=== PATIENT | female | born 1930 | race African-American/Black ===

== ENCOUNTER 2016-09-08 09:29 | Observation (INO) ==
[2016-09-08] MEDS ORDERED: hydrALAZINE 20 MG/1 ML VIAL IV PRN (09:32)
[2016-09-08] MEDS ORDERED: GLUCAGON 1 MG VIAL IM PRN ×2 (09:39→13:49)
[2016-09-08] MEDS ORDERED: DEXTROSE 50% 25 GM/50 ML VIAL IV PRN ×2 (09:39→13:49)
[2016-09-08 11:51] LABS: Basophils # 0.1 10*3/uL (0.0-0.2); Basophils % 0.9 % (0.0-0.8); Eosinophils % 0.7 % (0.00-10.9); Hematocrit 34.4 VOL% (35.7-47.0); Hemoglobin 10.6 GM/DL (12.0-16.0); Immature Granulocytes % 0.2 %; Immature Granulocytes Absolute 0.01 #; Lymphocytes # 1.9 10*3/uL (1.4-4.0); Lymphocytes % 32.2 % (21.3-54.2); Mean Corpuscular HGB Conc 30.8 GM/DL (32-36); Mean Corpuscular Hemoglobin 26 PG (27-34); Mean Corpuscular Volume 84.5 FL (87-102); Mean Platelet Volume 10.4 FL (9.6-12.0); Monocytes # 0.3 10*3/uL (0.11-0.8); Monocytes % 5.1 % (1.7-12.7); Neutrophils # 3.6 10*3/uL (1.4-7.4); Neutrophils % 60.9 % (38.7-73.9); Platelet Count 186 T/CUMM (130-400); Red Blood Count 4.07 MC/CUMM (3.8-5.5); Red Cell Distribution Width 13.4 % (9.3-17.3); White Blood Count 5.9 T/CUMM (4-12)
[2016-09-08 12:24] LABS: Calcium 8.9 MG/DL (8.5-10.1); Magnesium 1.3 MG/DL (1.8-2.4); Osmolality,Calculated 293.7 MOS/KG (273-304); Potassium 3.7 MMOL/L (3.5-5.1); Thyroid Stimulating Hormone 0.238 uIU/ml (0.358-3.74)
--- NOTE | 2016-09-08 12:36 | EKG Report ---
Stationary ECG Study [facility] Test Date: 09/08/2016 12:36:06 PM Pat Name: GRICELDA SANDS Department: Room: 267 Gender: F [employer] Services: DEMARCO : 1930 Requested by: Uma Rolon Order Number: [id number] Reading MD: FAN CASE Intervals [place] Rate: 62 P: 66 HI: 215 QRS: 29 QRSD: 152 T: 37 QT: 441 QTc: 447 Interpretive Statements SINUS RHYTHM WITH PROLONGED HI INTERVAL RIGHT BUNDLE BRANCH BLOCK Electronically Signed On 09-11-16 11:00:31 CDT by FAN CASE [email or web address]
[2016-09-08] MEDS: INSULIN REGULAR 100 UNIT/ML SUBCUT SCH ×3 (12:56→21:01)
[2016-09-08] MEDS ORDERED: ENOXAPARIN 40 MG/0.4 ML SYRINGE SUBCUT SCH (13:30)
--- NOTE | 2016-09-08 13:39 | XRay Report ---
Exam: XR chest 2V Indication: Angina Comparison study: 06/11/2016 Findings: The heart, mediastinum and bony structures are stable from prior. Mild hyperexpansion of the lungs and central interstitial prominence is noted and may represent chronic scarring/COPD changes. There is no focal consolidation, pneumothorax or pleural effusion identified. Cholecystectomy clips are noted. Impression: No acute cardiopulmonary process. Chronic interstitial changes. Otherwise, no significant change. PROCEDURE INTERPRETED AT [facility] DEPARTMENT OF RADIOLOGY Final Report Signed by: Arnel Wayne
[2016-09-08] MEDS ORDERED: MAGNESIUM SULF RIDER 2 GM in PREMIX 1 EACH IV PRN ×2 (13:45→15:02)
[2016-09-08] MEDS ORDERED: MAGNESIUM SULF RIDER 4 GM in PREMIX 1 EACH IV PRN (13:45)
[2016-09-08] MEDS: SODIUM CHLORIDE 0.45% 1,000 ML IV SCH (13:52)
[2016-09-08] MEDS: MONTELUKAST 10 MG TABLET PO SCH (13:57)
[2016-09-08] MEDS ORDERED: OMEPRAZOLE 20 MG CAPSULE PO SCH (14:00)
[2016-09-08] MEDS ORDERED: METOPROLOL TARTRATE 50 MG TABLET PO SCH ×2 (14:00→21:00)
[2016-09-08] MEDS ORDERED: CYANOCOBALAMIN 1000 MCG/1 ML VIAL IM SCH (14:00)
[2016-09-08] MEDS ORDERED: ISOSORBIDE MONONITRATE 60 MG TABLET PO SCH (14:00)
[2016-09-08 14:17] LABS: Apearance,Urine Slightly Hazy (Clear); Bacteria,Urine Moderate /HPF (Few); Bilirubin,Urine Negative (Negative); Blood, Urine Negative (Negative); Glucose,Urine (UA) 50 mg/dL (Negative); Ketones,Urine Negative (Negative); Nitrite,Urine Negative (Negative); Protein,Urine Negative; RBC,Urine <1 /HPF (0-4); Squamous Epithelial Cell,Urine Occasional /HPF (0-10); Urine Color Straw (Yellow); Urine Specific Gravity 1.008 (1.001-1.035); Urine Urobilinogen < 2.0 EU/DL (0.2-1.0); WBC,Urine 1 /HPF (0-6)
--- NOTE | 2016-09-08 14:38 | Event Note ---
<Yamel Parra E - Last Filed: 09/08/16 14:37> See H&P scanned in from Dr. Dejesus's clinci visit today. Will discuss with Dr. Dwyer the plan of care. <Gil Dwyer - Last Filed: 09/08/16 15:32> Patient seen and examined and case discussed with Yamel Parra. The patient has symptoms consistent with crescendo exertional angina. I think she needs cardiac catheterization. I discussed this with her today and will plan to get this performed tomorrow.
[2016-09-08] MEDS ORDERED: amLODIPine 5 MG TABLET PO SCH (15:00)
[2016-09-08] MEDS ORDERED: POTASSIUM CHLORIDE RIDER 10 MEQ in PREMIX 1 EACH IV PRN (15:02)
[2016-09-08] MEDS ORDERED: ENOXAPARIN 60 MG/0.6 ML SYRINGE SUBCUT ONE (15:30)
--- NOTE | 2016-09-08 15:59 | Ultrasound Report ---
Exam: Carotid ultrasound Date: 09/08/2016 Comparison: 07/04/2011 Technique: Duplex scans of the carotid and vertebral arteries using B-mode/Chavez scale imaging and Doppler spectral analysis and color flow. Reason: Right carotid bruit Findings: The right ICA measures 6.0 mm in diameter and the left ICA measures 4.2 mm in diameter. Color-flow documented in the visualized arteries. The peak systolic velocities are as follows: Right CCA: 96.4 cm/s Right ICA: 147.0 cm/s Right ECA: 110.3 cm/s Left CCA: 84.0 cm/s Left ICA: 115.3 cm/s Left ECA: 115.3 cm/s The peak systolic ICA/CCA velocity ratios are as follows: 1.5 on the right and 1.4 on the left. Antegrade flow is present in both vertebral arteries. Impression:[The velocity measurements in the right ICA falls within the 50-69% stenosis range with less than 50% stenosis in the left ICA. However the right ICA/CCA ratio is normal which indicates this stenosis may be less critical. Calcific plaque formation with antegrade flow in both vertebral arteries.] The Society of Radiologists in Ultrasound consensus conference criteria was used. The Ultrasound images were captured and stored. PROCEDURE INTERPRETED AT [facility] DEPARTMENT OF RADIOLOGY Final Report Signed by: Dr. Hiwot Vela
[2016-09-08 16:15] LABS: PT Patient Result 10.6 SECS
[2016-09-08] MEDS ORDERED: ROSUVASTATIN 10 MG TABLET PO SCH ×2 (17:00→21:00)
[2016-09-08] MEDS: sitaGLIPtin 100 MG TABLET PO SCH (21:00)
[2016-09-08] MEDS: ALUMINUM/MAGNES/SIMETH MAX STR 30 ML UDCUP PO PRN (21:00)
[2016-09-08] MEDS ORDERED: glyBURIDE MICRONIZED 6 MG TABLET PO SCH (21:00)
[2016-09-08] MEDS ORDERED: amLODIPine 2.5 MG TABLET PO SCH (21:00)
[2016-09-08] MEDS: DOCUSATE SODIUM 100 MG CAPSULE PO SCH (21:01)
[2016-09-08] MEDS: CARVEDILOL 25 MG TABLET PO SCH (21:01)
[2016-09-08] MEDS: MAGNESIUM CHLORIDE 64 MG TABLET PO SCH (21:03)
[2016-09-09 05:25] LABS: Risk Ratio 2.14
[2016-09-09] MEDS: LEVOTHYROXINE 75 MCG TABLET PO SCH (06:39)
[2016-09-09] MEDS: SODIUM CHLORIDE 0.45% 1,000 ML IV SCH ×2 (06:40→15:55)
[2016-09-09] MEDS ORDERED: diphenhydrAMINE CAP 25 MG CAPSULE PO ONE (07:00)
[2016-09-09] MEDS ORDERED: DIAZEPAM 5 MG TABLET PO ONE (07:00)
[2016-09-09] MEDS ORDERED: LEVOTHYROXINE 75 MCG TABLET PO SCH (07:00)
[2016-09-09] MEDS ORDERED: amLODIPine 5 MG TABLET PO SCH (09:00)
[2016-09-09] MEDS ORDERED: MAGNESIUM CHLORIDE 64 MG TABLET PO SCH (09:00)
[2016-09-09] MEDS ORDERED: ASPIRIN EC 81 MG TABLET PO SCH (09:00)
[2016-09-09] MEDS ORDERED: ENOXAPARIN 100 MG/ML SYRINGE SUBCUT SCH (09:00)
[2016-09-09] MEDS ORDERED: sitaGLIPtin 100 MG TABLET PO SCH (09:00)
--- NOTE | 2016-09-09 09:47 | Cardiology Progress Note ---
Assessment and Plan (1) Unstable angina Status: Acute Assessment and plan: 1. 86-year-old BF with diabetes, hypertension, one-year history of gradually increasing exertional chest discomfort and dyspnea on exertion which became much worse in the last 2 weeks' time suggestive of unstable angina. 2. She was admitted by Dr. Henderson from clinic yesterday due to her unstable symptoms. 3. Plan left heart catheterization today from right femoral access, given her high probability of significant CAD I discussed with the patient arrest and benefits of heart catheterization including but not limited to: , stroke, heart attack, vascular damage, reaction to medicine or dye, bleeding requiring blood transfusion, failure the procedure, possible need for planned her emergency heart surgery. I have answered all the patient's questions and the patient is agreeable to proceed. Current Visit: Yes (2) HTN (hypertension) Status: Chronic Current Visit: No Cardiology - PN: Subj Interval history: Mrs. Bradley is doing better today. She is very concerned as she's had exertional chest chest discomfort in her upper chest for over a year but has gotten very severe in the last 2 weeks. His assessment distant exertion. She is asymptomatic this morning. We discussed risks and benefits of catheterization I answered all her questions. Exam (Progress Note) - Constitutional Vitals: Period Temp Pulse Resp BP Sys/Mathew Pulse Ox Last 24 Hr 97.2 F-98.6 F 63-89 18-20 132-191/63-81 95-100 General appearance: no acute distress, over weight - Head Head exam: Present: normal inspection, normocephalic, atraumatic - Neck Neck exam: Present: normal inspection - Respiratory Respiratory exam: Present: clear to auscultation bilaterally. Absent: rhonchi, stridor, wheezes - Cardiovascular Cardiovascular exam: Present: regular rate and rhythm. Absent: diastolic murmur , rubs - GI/Abdominal GI/Abdominal exam: Present: soft. Absent: tenderness - Extremities Exam Extremities exam: Present: other (strong right femoral pulse, and right radial pulse.). Absent: edema Result/EKG - Labs CBC & BMP: 09/08/16 11:17 09/08/16 11:17 Labs: Laboratory Results - last 24 hr 09/08/16 09/08/16 09/08/16 11:17 11:17 11:17 WBC 5.9 RBC 4.07 Hgb 10.6 L Hct 34.4 L MCV 84.5 L MCH 26 L MCHC 30.8 L RDW 13.4 Plt Count 186 MPV 10.4 Neut % (Auto) 60.9 Lymph % (Auto) 32.2 [place] % (Auto) 5.1 Eos % (Auto) 0.7 Baso % (Auto) 0.9 H Neut # (Auto) 3.6 Lymph # (Auto) 1.9 [place] # (Auto) 0.3 Eos # (Auto) 0.0 Baso # (Auto) 0.1 Immature Gran % 0.2 Nucleated RBC % 0.0 Immature Gran # 0.01 Nucleated RBCs # 0.00 INR PT Patient/Control Mix Sodium 145 Potassium 3.7 Chloride 108 H Carbon Dioxide 27 Anion Gap 13.7 BUN 14 Creatinine 0.90 GFR Calculation 77 BUN/Creatinine Ratio 15.00 Glucose 180 H POC Glucose Calculated Osmolality 293.7 Calcium 8.9 Magnesium 1.3 L Troponin I < 0.015 Triglycerides Cholesterol LDL Cholesterol VLDL Cholesterol HDL Cholesterol Heart Disease Risk Ratio TSH 3rd Generation 0.238 L Urine Color Urine Appearance Urine pH Ur Specific [place] Urine Protein Urine Glucose (UA) Urine Ketones Urine Blood Urine Nitrate Urine Bilirubin Urine Urobilinogen Urine Leukocytes Urine RBC Urine WBC Ur Squamous Epith Cells Urine Bacteria Ur Culture Indicated? 09/08/16 09/08/16 09/08/16 12:49 13:55 15:58 WBC RBC Hgb Hct MCV MCH MCHC RDW Plt Count MPV Neut % (Auto) Lymph % (Auto) [place] % (Auto) Eos % (Auto) Baso % (Auto) Neut # (Auto) Lymph # (Auto) [place] # (Auto) Eos # (Auto) Baso # (Auto) Immature Gran % Nucleated RBC % Immature Gran # Nucleated RBCs # INR PT Patient/Control Mix Sodium Potassium Chloride Carbon Dioxide Anion Gap BUN Creatinine GFR Calculation BUN/Creatinine Ratio Glucose POC Glucose 191 H Calculated Osmolality Calcium Magnesium Troponin I < 0.015 Triglycerides Cholesterol LDL Cholesterol VLDL Cholesterol HDL Cholesterol Heart Disease Risk Ratio TSH 3rd Generation Urine Color Straw Urine Appearance Slightly hazy Urine pH 6.0 Ur Specific [place] 1.008 Urine Protein Negative Urine Glucose (UA) 50 Urine Ketones Negative Urine Blood Negative Urine Nitrate Negative Urine Bilirubin Negative Urine Urobilinogen < 2.0 H Urine Leukocytes Negative Urine RBC <1 Urine WBC 1 Ur Squamous Epith Cells Occasional Urine Bacteria Moderate Ur Culture Indicated? Not indicated 09/08/16 09/08/16 09/08/16 15:58 15:59 20:59 WBC RBC Hgb Hct MCV MCH MCHC RDW Plt Count MPV Neut % (Auto) Lymph % (Auto) [place] % (Auto) Eos % (Auto) Baso % (Auto) Neut # (Auto) Lymph # (Auto) [place] # (Auto) Eos # (Auto) Baso # (Auto) Immature Gran % Nucleated RBC % Immature Gran # Nucleated RBCs # INR 1.0 PT Patient/Control Mix 10.6 Sodium Potassium Chloride Carbon Dioxide Anion Gap BUN Creatinine GFR Calculation BUN/Creatinine Ratio Glucose POC Glucose 116 H 253 H Calculated Osmolality Calcium Magnesium Troponin I Triglycerides Cholesterol LDL Cholesterol VLDL Cholesterol HDL Cholesterol Heart Disease Risk Ratio TSH 3rd Generation Urine Color Urine Appearance Urine pH Ur Specific [place] Urine Protein Urine Glucose (UA) Urine Ketones Urine Blood Urine Nitrate Urine Bilirubin Urine Urobilinogen Urine Leukocytes Urine RBC Urine WBC Ur Squamous Epith Cells Urine Bacteria Ur Culture Indicated? 09/09/16 09/09/16 09/09/16 04:05 04:05 07:36 WBC RBC Hgb Hct MCV MCH MCHC RDW Plt Count MPV Neut % (Auto) Lymph % (Auto) [place] % (Auto) Eos % (Auto) Baso % (Auto) Neut # (Auto) Lymph # (Auto) [place] # (Auto) Eos # (Auto) Baso # (Auto) Immature Gran % Nucleated RBC % Immature Gran # Nucleated RBCs # INR PT Patient/Control Mix Sodium Potassium Chloride Carbon Dioxide Anion Gap BUN Creatinine GFR Calculation BUN/Creatinine Ratio Glucose POC Glucose 180 H Calculated Osmolality Calcium Magnesium 2.4 Troponin I Triglycerides 85 Cholesterol 165 LDL Cholesterol 79.0 VLDL Cholesterol 17.0 HDL Cholesterol 77 H Heart Disease Risk Ratio 2.14 TSH 3rd Generation Urine Color Urine Appearance Urine pH Ur Specific [place] Urine Protein Urine Glucose (UA) Urine Ketones Urine Blood Urine Nitrate Urine Bilirubin Urine Urobilinogen Urine Leukocytes Urine RBC Urine WBC Ur Squamous Epith Cells Urine Bacteria Ur Culture Indicated?
[2016-09-09] MEDS: INSULIN REGULAR 100 UNIT/ML SUBCUT SCH ×4 (10:03→21:23)
[2016-09-09] MEDS ORDERED: DIAZEPAM 5 MG TABLET ONE (13:59)
[2016-09-09] MEDS ORDERED: diphenhydrAMINE CAP 50 MG CAPSULE ONE (13:59)
[2016-09-09] MEDS: DOCUSATE SODIUM 100 MG CAPSULE PO SCH ×2 (14:00→21:24)
[2016-09-09] MEDS: ISOSORBIDE MONONITRATE 60 MG TABLET PO SCH (14:04)
[2016-09-09] MEDS: CARVEDILOL 25 MG TABLET PO SCH ×2 (14:04→21:26)
[2016-09-09] MEDS: ASPIRIN EC 81 MG TABLET PO SCH (14:05)
[2016-09-09] MEDS: PANTOPRAZOLE 40 MG TABLET PO SCH (14:05)
[2016-09-09] MEDS ORDERED: HYDROmorphone 2 MG/1 ML VIAL ONE (14:54)
[2016-09-09] MEDS ORDERED: LIDOCAINE 1% 20 ML VIAL ONE (14:54)
[2016-09-09] MEDS ORDERED: MIDAZOLAM 2 MG/2 ML VIAL ONE (14:55)
[2016-09-09] MEDS: MAGNESIUM CHLORIDE 64 MG TABLET PO SCH ×2 (15:05→21:26)
[2016-09-09] MEDS ORDERED: CLOPIDOGREL 300 MG TABLET PO ONE (15:28)
[2016-09-09] MEDS ORDERED: HYDROmorphone 2 MG/1 ML VIAL IV PRN (15:30)
--- NOTE | 2016-09-09 15:38 | Cardiac Catheterization ---
Date of Procedure:: 09/09/16 Post-op diagnosis: same Procedure: Procedures performed: 1. Left heart catheterization 2. Coronary angiography 3. Left ventricular angiography 4. Right femoral arteriotomy closure with Angio-Seal device Brief clinical summary: Mrs. Bradley an 86-year-old BF patient Dr. Henderson's, with progressive exertional chest pain suggestive of accelerated/unstable angina Description of procedure: After obtaining informed consent, the right groin was prepped and draped in the usual sterile fashion. Next a short 6 Bulgarian sheath was placed in the right femoral artery using a modified Seldinger technique, after the patient received IV sedation and local anesthetic. Next a JL4 catheter was advanced over a guidewire under fluoroscopic guidance, and was engaged to the left coronary artery after which angiography was performed in multiple views. This was then removed over a wire, and a JR4 catheter was advanced in similar fashion was engaged the right coronary artery after which angiography was performed in multiple views. Next a bent pigtail catheter was advanced into the left ventricle, where hemodynamic measurements were obtained, left ventriculography was performed. I was able to visualize the sheath on a "steele down" shot which showed the sheath was inserted in the right common femoral artery in a vessel suitable for closure. Hemostasis was obtained with Angio-Seal device with no residual bleeding. She was transferred from the labor relations manager in good condition without complication. Coronary angiography: Left main coronary artery is normal developed with no significant disease. The left anterior descending has moderate to heavy proximal calcification with 60% stenosis. There are couple of tiny diagonal branches LAD wraps around the apex. The circumflex has a moderate to heavily calcified 99% ostial stenosis involving a long thin diseased ramus which has 99 % proximal disease/bifurcation lesion. There are 2 average sized obtuse marginal branches the first has greater than 90% proximal disease in the second has 99% mid disease. They OM 2 is quite tortuous. The right coronary artery is smaller than average caliber is dominant. There is moderate to heavy calcification throughout its course with 95% proximal stenosis and high mid subtotal occlusion. The distal fell vessel fills by right to right as well as [id number] collaterals. Left ventriculography: Left ventricles appears normal size with normal LV systolic function with Ejection fraction 60% without segmental wall motion abnormality. There is no significant mitral regurgitation. Impression: 1. Normal LV systolic function with ejection fraction estimated to be 60% without segmental wall motion around 2. Mildly elevated left-sided filling pressures LVEDP equal to 11 mmHg 3. Right dominant system 4. Diffuse moderate to heavy calcification of all 3 coronary systems with coronary artery disease as described above including but not limited to: 8. Heavily calcified 60% proximal LAD stenosis B. Moderate to heavily calcified 99% ostial circumflex disease with greater than 95% proximal OM1, and mid OM 2 disease C. Diffusely calcified RCA with 95% proximal RCA with subtotal high mid RCA occlusion with filling of distal vessel by right carotid [id number] collaterals Recommendation discussion: It is encouraging that Mrs. Bradley has normal LV function. Her anatomy is not amenable to percutaneous intervention. I discussed the case with Dr. Henderson her primary sprayer leather who agrees to medical therapy is the best option. I'll start her on her next and increase Crestor to 20 minutes per day. We'll continue baby aspirin and Plavix. Anesthesia: minimal conscious sedation Surgeon / Physician: Niranjan Lenz Strategic Account Director: other Estimated blood loss: minimal Specimens: none sent Condition: stable Disposition: floor - Medications / Follow-up
--- NOTE | 2016-09-09 15:51 | ECHO Report ---
Antionette Bradley Exam Date: 09/09/2016 09:01 Referring Physician: Technologist: Kelsie Torrez ZHANNA Age: 86 Ht (in): Wt (lb): Gender: F Exam Location: [facility] Echo Indications: Chest pain, unspecified, Essential (primary) hypertension, DMII, Dyslippidemia BP: / HR: Rhythm: Sinus Technical Quality: IMPRESSIONS Normal chamber sizes Normal LV systolic function with ejection fraction estimated to be 60% without segmental wall motion normality Aortic sclerosis without stenosis Mitral valve thickening with normal leaflet motion, and trace to 1+ mitral regurgitation 1+ tricuspid regurgitation with RVSP 33 mmHg plus RAP MEASUREMENTS (Male / Female) Normal Values 2D ECHO LV Diastolic Diameter PLAX 3.7 cm 4.2 - 5.9 / 3.9 - 5.3 cm LV Systolic Diameter PLAX 2.4 cm LV Fractional Shortening PLAX 34.4 % IVS Diastolic Thickness 1.1 cm 0.6 - 1.0 / 0.6 - 0.9 cm LVPW Diastolic Thickness 1.2 cm 0.6 - 1.0 / 0.6 - 0.9 cm RV Internal Dim ED PLAX 3.3 cm Aortic Root Diameter 2.9 cm LA Systolic Diameter LX 3.8 cm 3.0 - 4.0 / 2.7 - 3.8 cm DOPPLER TR Peak Velocity 289.0 cm/s TR Peak Gradient 33.4 mmHg FINDINGS Left Ventricle Normal left ventricular cavity size. Mild left ventricular hypertrophy. Left ventricular ejection fraction is estimated at 60 %. Right Ventricle The right ventricle is normal in size and function. Right Atrium Mild atrial enlargement in apical view (elongated RA). Left Atrium Mild atrial enlargement in apical view (elongated LA). Mitral Valve Thickened mitral valve. Trace to mild mitral valve regurgitation. Aortic Valve Aortic valve sclerosis without stenosis or regurgitation. Tricuspid Valve Morphologically normal tricuspid valve. Trace to mild tricuspid valve regurgitation. Tricuspid regurgitation velocities suggest a PAP of 43 mmHg. Pulmonic Valve Morphologically normal pulmonic valve. Trace pulmonary valve regurgitation. Pericardium Normal pericardium without effusion. Aorta Normal ascending aorta dimension. Niranjan Lenz (Electronically Signed) Final Date: 09 September 2016 15:50
[2016-09-09] MEDS: MONTELUKAST 10 MG TABLET PO SCH (17:44)
[2016-09-09] MEDS ORDERED: ROSUVASTATIN 20 MG TABLET PO SCH (21:00)
[2016-09-09] MEDS: RANOLAZINE 500 MG TABLET PO SCH (21:24)
[2016-09-09] MEDS: sitaGLIPtin 100 MG TABLET PO SCH (21:26)
[2016-09-10] MEDS: ALUMINUM/MAGNES/SIMETH MAX STR 30 ML UDCUP PO PRN (02:08)
[2016-09-10] MEDS: SODIUM CHLORIDE 0.45% 1,000 ML IV SCH (04:03)
[2016-09-10] MEDS: LEVOTHYROXINE 75 MCG TABLET PO SCH (06:02)
[2016-09-10 06:56] LABS: Calcium 8.2 MG/DL (8.5-10.1); Osmolality,Calculated 288.7 MOS/KG (273-304); Potassium 4.2 MMOL/L (3.5-5.1)
[2016-09-10] MEDS: RANOLAZINE 500 MG TABLET PO SCH (08:38)
[2016-09-10] MEDS: ASPIRIN EC 81 MG TABLET PO SCH (08:38)
[2016-09-10] MEDS: PANTOPRAZOLE 40 MG TABLET PO SCH (08:38)
[2016-09-10] MEDS: MAGNESIUM CHLORIDE 64 MG TABLET PO SCH (08:38)
[2016-09-10] MEDS: ISOSORBIDE MONONITRATE 60 MG TABLET PO SCH (08:38)
[2016-09-10] MEDS: DOCUSATE SODIUM 100 MG CAPSULE PO SCH (08:39)
[2016-09-10] MEDS: INSULIN REGULAR 100 UNIT/ML SUBCUT SCH (08:39)
[2016-09-10] MEDS: MONTELUKAST 10 MG TABLET PO SCH (08:39)
[2016-09-10] MEDS: CARVEDILOL 25 MG TABLET PO SCH (08:39)
[2016-09-10] MEDS ORDERED: CLOPIDOGREL 75 MG TABLET PO SCH (09:00)
[2016-09-10 09:28] LABS: Basophils % 0.6 % (0.0-0.8); Eosinophils # 0.1 10*3/uL (0.0-0.87); Eosinophils % 1.3 % (0.00-10.9); Immature Granulocytes % 0.3 %; Immature Granulocytes Absolute 0.02 #; Lymphocytes # 1.7 10*3/uL (1.4-4.0); Lymphocytes % 26.2 % (21.3-54.2); Mean Corpuscular HGB Conc 31.3 GM/DL (32-36); Mean Corpuscular Hemoglobin 26 PG (27-34); Mean Corpuscular Volume 83.6 FL (87-102); Mean Platelet Volume 10.6 FL (9.6-12.0); Monocytes # 0.5 10*3/uL (0.11-0.8); Monocytes % 7.1 % (1.7-12.7); Neutrophils # 4.1 10*3/uL (1.4-7.4); Neutrophils % 64.5 % (38.7-73.9); Platelet Count 168 T/CUMM (130-400); Red Blood Count 3.83 MC/CUMM (3.8-5.5); Red Cell Distribution Width 13.7 % (9.3-17.3); White Blood Count 6.3 T/CUMM (4-12)
[2016-09-10 11:56] VITALS: BP 114/50
--- NOTE | 2016-09-10 12:06 | Discharge Summary ---
Hospital Course - Hospital Course Hospital Course: Patient was admitted from Dr. Dejesus's office for chest pain, shortness of breath. She underwent elective cardiac catheterization performed by Dr. Lenz which revealed the following: Impression: 1. Normal LV systolic function with ejection fraction estimated to be 60% without segmental wall motion around 2. Mildly elevated left-sided filling pressures LVEDP equal to 11 mmHg 3. Right dominant system 4. Diffuse moderate to heavy calcification of all 3 coronary systems with coronary artery disease as described above including but not limited to: 8. Heavily calcified 60% proximal LAD stenosis B. Moderate to heavily calcified 99% ostial circumflex disease with greater than 95% proximal OM1, and mid OM 2 disease C. Diffusely calcified RCA with 95% proximal RCA with subtotal high mid RCA occlusion with filling of distal vessel by right carotid [id number] collaterals Recommendation discussion: It is encouraging that Mrs. Bradley has normal LV function. Her anatomy is not amenable to percutaneous intervention. The case was discussed with Dr. Dejesus, her primary marble polisher hand. Medical management deemed the most appropriate action. Continue to treat with low dose ASA, Plavix and increased dose of Crestor. She tolerated the procedure well without complication was returned to our telemetry unit in stable condition. Overnight, her labs are stable. She denies chest pain, heaviness or tightness. Right groin is soft and free of hematoma or bruit. She has been ambulating without problems. Having felt him at maximal medical therapy, she is being discharged home in stable condition. She will be given a one-week follow-up appoint with Dr. Dejesus, labs: BMP, magnesium and CBC. Not being discharged on an ANNETTE-Inhibitor as her blood pressure came under better control with Procardia. Can attempt outpatient introduction if indicated. - Time spent with patient Time with patient DS: Greater than 30 minutes Diagnosis - Discharge Diagnosis (1) Dyslipidemia Status: Chronic (2) Unstable angina Status: Resolved (3) Diabetes Status: Chronic (4) HTN (hypertension) Status: Chronic (5) CAD (coronary artery disease) Status: Chronic Specialty Discharge - Follow Up or Referrals Follow up with: Bridgette Dejesus DO [Physician] - 1 Week (BMP, magnesium, CBC) Discharge Plan - Discharge Data Disposition: Disch To Home/Self Care Condition at Discharge: Stable Discharge Diet: heart healthy Activity: other (Post cath expectations) Hygiene: other (Post cath expectations) Weight Bearing at Discharge: other (Post cath expectations) Driving: other (Post cath expectations) Contact your physician if you experience:: fever over 101, Difficulty voiding, Redness or swelling, Nausea/Vomiting, Shortness of breath, Bleeding, pain uncontrolled by pain medications - Discharge Medications New Clopidogrel [Plavix] 75 mg PO DAILY #30 tablet Ranolazine [Ranexa] 500 mg PO BID #60 tablet Rosuvastatin [Crestor] 20 mg PO BEDTIME #30 tablet Aspirin EC Tab 81 mg PO DAILY #0 tablet NIFEdipine XL TAB [Procardia Xl] 30 mg PO BEDTIME #30 tablet Continue metFORMIN [Glucophage] 500 mg PO TID W/MEALS sitaGLIPtin [Januvia] 100 mg PO DAILY Montelukast Tab [Singulair Tab] 10 mg PO DAILY Isosorbide Mononitrate [Imdur] 60 mg PO DAILY Levothyroxine Tab [Synthroid Tab] 75 mcg PO 0700 Aspirin [Ecotrin] 81 mg PO DAILY Omeprazole 20 mg PO DAILY Glyburide,Micronized [Glyburide Micronized] 6 mg PO BID Metoprolol Tartrate 50 mg PO BID Cyanocobalamin Inj [Vitamin B12 Inj] 1,000 mcg IM Q30D Magnesium Chloride [Slow Mag] 64 mg PO DAILY Discontinued amLODIPine [Norvasc] 2.5 mg PO BEDTIME Rosuvastatin Calcium [Crestor] 5 mg PO DAILY - Follow Up or Referral - Forms/Instructions Additional Discharge Instructions: Please write, in detail, list of medications and times to take for patient. Please instruct NOT to resume Metformin until Satuday morning. Thanks Exam - Constitutional Vitals: Period Temp Pulse Resp BP Sys/Mathew Pulse Ox Last 24 Hr 97.6 F-98.0 F 53-77 16-20 89-154/41-68 94-100 Exam: General: [Appears well with no apparent distress.] [Pleasant and cooperative. ] [Appears comfortable.] HEENT: [PERRL, normocephalic, atraumatic. Mucous membranes moist. No jaundice noted. Conjunctiva moist and clear, sclerae anicteric] Neck: No JVD/HJR, no thyromegaly or lymphadenopathy noted. No carotid bruit appreciated Cardiac: [Regular rate and rhythm.] [No murmur rub or gallop.] Lungs: [Clear to auscultation without accessory muscle use to assist the respiratory pattern.] Not requiring oxygen Abdomen: Soft, bowel sounds normoactive. Nontender and nondistended. No abdominal bruit or thrill noted. No masses noted. Musculoskeletal: No fluid collection. Decreased range of motion is noted. Extremities: Right groin is soft, free of hematoma or bruit. No clubbing, cyanosis noted. [ No edema noted.] Upper extremity pulses 2+. Lower extremity pulses 2+. Capillary refill less than 3 seconds. Skin: No unusual lesions or rashes. No skin breakdown appreciated. Neuro: Awake, alert and oriented 3. Moves all extremities well without hemiparesis or paralysis. No essential tremor is appreciated. Discharge Results Labs on day of discharge: Labs from last 24 hours 09/10/16 09/10/16 09/10/16 11:39 07:27 05:33 WBC RBC Hgb Hct MCV MCH MCHC RDW Plt Count MPV Neut % (Auto) Lymph % (Auto) [place] % (Auto) Eos % (Auto) Baso % (Auto) Neut # (Auto) Lymph # (Auto) [place] # (Auto) Eos # (Auto) Baso # (Auto) Immature Gran % Nucleated RBC % Immature Gran # Nucleated RBCs # Sodium 145 Potassium 4.2 Chloride 109 H Carbon Dioxide 24 Anion Gap 16.2 H BUN 9 Creatinine 0.70 GFR Calculation 103 BUN/Creatinine Ratio 12.00 Glucose 133 H POC Glucose 236 H 171 H Calculated Osmolality 288.7 Calcium 8.2 L 09/10/16 09/09/16 09/09/16 05:33 21:14 16:31 WBC 6.3 RBC 3.83 Hgb 10.0 L Hct 32.0 L MCV 83.6 L MCH 26 L MCHC 31.3 L RDW 13.7 Plt Count 168 MPV 10.6 Neut % (Auto) 64.5 Lymph % (Auto) 26.2 [place] % (Auto) 7.1 Eos % (Auto) 1.3 Baso % (Auto) 0.6 Neut # (Auto) 4.1 Lymph # (Auto) 1.7 [place] # (Auto) 0.5 Eos # (Auto) 0.1 Baso # (Auto) 0.0 Immature Gran % 0.3 Nucleated RBC % 0.0 Immature Gran # 0.02 Nucleated RBCs # 0.00 Sodium Potassium Chloride Carbon Dioxide Anion Gap BUN Creatinine GFR Calculation BUN/Creatinine Ratio Glucose POC Glucose 217 H 170 H Calculated Osmolality Calcium 09/09/16 11:49 WBC RBC Hgb Hct MCV MCH MCHC RDW Plt Count MPV Neut % (Auto) Lymph % (Auto) [place] % (Auto) Eos % (Auto) Baso % (Auto) Neut # (Auto) Lymph # (Auto) [place] # (Auto) Eos # (Auto) Baso # (Auto) Immature Gran % Nucleated RBC % Immature Gran # Nucleated RBCs # Sodium Potassium Chloride Carbon Dioxide Anion Gap BUN Creatinine GFR Calculation BUN/Creatinine Ratio Glucose POC Glucose 255 H Calculated Osmolality Calcium - Imaging and Cardiology Cardiology Procedure: report reviewed by me Procedure: Chest x-ray: report reviewed by me DS: Provider Date of admission: 09/08/16 10:44 Primary care physician: Igor Mendez MD Attending physician on admission: Bridgette Dejesus DO Discharging clinician: Yamel Parra NP Expected date of discharge: 09/10/16
== END 2016-09-10 14:48 | disposition home or self-care (01) ==
LOC: N.TELES
PROVIDERS: ADMIT Internal Medicine Cardiovascular Disease; ATTEND Internal Medicine Cardiovascular Disease
PROC: CLCCHCL (ICD-10-PCS; 2016-09-09 15:15)

== ENCOUNTER 2019-01-06 21:20 | Inpatient (IN) ==
[2019-01-06] MEDS ORDERED: SODIUM CHLORIDE 0.9% 1,000 ML IV STA (21:39)
[2019-01-06 22:13] LABS: Basophils # 0.1 10*3/uL (0.0-0.2); Basophils % 0.5 % (0.0-0.8); Hematocrit 33.2 VOL% (35.7-47.0); Hemoglobin 10.6 GM/DL (12.0-16.0); Immature Granulocytes % 0.5 %; Immature Granulocytes Absolute 0.05 #; Lymphocytes % 11.2 % (21.3-54.2); Mean Corpuscular HGB Conc 31.9 GM/DL (32-36); Mean Corpuscular Volume 85.6 FL (87-102); Mean Platelet Volume 9.9 FL (9.6-12.0); Monocytes % 7.4 % (1.7-12.7); Neutrophils % 80.4 % (38.7-73.9); Platelet Count 164 T/CUMM (130-400); Red Blood Count 3.88 MC/CUMM (3.8-5.5); White Blood Count 9.2 T/CUMM (4-12)
[2019-01-06 22:36] LABS: Apearance,Urine CLEAR (Clear); Bacteria,Urine Many /HPF (Few); Bilirubin,Urine Negative (Negative); Blood, Urine Negative (Negative); Glucose,Urine (UA) 150 mg/dL (Negative); Hyaline Casts,Urine 4 /LPF (0-3); Ketones,Urine 20 mg/dL (Negative); Mucus,Urine Occasional /LPF (Occasional); Nitrite,Urine Negative (Negative); Protein,Urine 30 MG/DL; RBC,Urine 4 /HPF (0-4); Squamous Epithelial Cell,Urine Occasional /HPF (0-10); Urine Color Amber (Yellow); Urine Specific Gravity 1.018 (1.001-1.035); Urine Urobilinogen < 2.0 EU/DL (0.2-1.0); WBC,Urine 3 /HPF (0-6)
[2019-01-06 22:38] LABS: Albumin 3.5 G/DL (3.4-5.0); Bilirubin,Total 0.6 MG/DL (0.2-1.0); Calcium 9.2 MG/DL (8.5-10.1); Osmolality,Calculated 274.2 MOS/KG (273-304); Total Protein 7.6 G/DL (6.4-8.3)
[2019-01-07] MEDS ORDERED: PROMETHAZINE 25 MG/1 ML VIAL IM PRN (02:14)
[2019-01-07] MEDS ORDERED: ONDANSETRON 4 MG/2 ML VIAL IV PRN (02:14)
[2019-01-07] MEDS ORDERED: NICOTINE 21 MG/24 HR PATCH TRANSDERM PRN (02:14)
[2019-01-07] MEDS ORDERED: diphenhydrAMINE CAP 25 MG CAPSULE PO PRN (02:14)
[2019-01-07] MEDS: SODIUM CHLORIDE 0.9% 1,000 ML IV SCH (02:43)
[2019-01-07 04:10] LABS: Free T4 (Free Thyroxine) 1.4 NG/DL (0.76-1.46); Thyroid Stimulating Hormone 0.293 uIU/ml (0.358-3.74)
[2019-01-07] MEDS: PANTOPRAZOLE 40 MG TABLET PO SCH (09:37)
[2019-01-07] MEDS ORDERED: DEXTROSE 50% 25 GM/50 ML VIAL IV PRN ×2 (12:02→17:20)
[2019-01-07] MEDS ORDERED: GLUCAGON 1 MG VIAL IM PRN (12:02)
[2019-01-07] MEDS ORDERED: INSULIN LISPRO 100 UNIT/ML SUBCUT SCH ×2 (12:18→16:30)
[2019-01-07] MEDS: INSULIN LISPRO 100 UNIT/ML SUBCUT SCH ×3 (12:31→21:11)
[2019-01-07] MEDS ORDERED: MORPHINE 4 MG/1 ML VIAL IV PRN (15:02)
[2019-01-07] MEDS ORDERED: HYDROmorphone 2 MG/1 ML VIAL IV PRN (15:09)
[2019-01-07] MEDS ORDERED: ALBUTEROL/IPRATROPIUM 3 ML NEB RESP TX PRN (15:12)
[2019-01-07] MEDS ORDERED: NITROGLYCERIN SL 0.4 MG TABLET SL PRN (15:14)
[2019-01-07] MEDS ORDERED: ENOXAPARIN 80 MG/0.8 ML SYRINGE SUBCUT SCH (15:30)
[2019-01-07] MEDS: AZITHROMYCIN INJ 500 MG in SODIUM CHLORIDE 0.9% 250 ML IV SCH (15:48)
[2019-01-07] MEDS: ASPIRIN EC 81 MG TABLET PO SCH (15:49)
[2019-01-07] MEDS: CLOPIDOGREL 75 MG TABLET PO SCH ×2 (15:49→16:07)
[2019-01-07] MEDS: ISOSORBIDE MONONITRATE 60 MG TABLET PO SCH (15:49)
[2019-01-07] MEDS: FUROSEMIDE 40 MG/4 ML VIAL IV SCH (15:49)
[2019-01-07] MEDS ORDERED: POTASSIUM CHLORIDE RIDER 10 MEQ in PREMIX 1 EACH IV PRN (16:07)
[2019-01-07] MEDS ORDERED: MAGNESIUM SULF RIDER 2 GM in PREMIX 1 EACH IV PRN (16:07)
[2019-01-07] MEDS ORDERED: diphenhydrAMINE CAP 25 MG CAPSULE PO ONE (16:09)
[2019-01-07] MEDS ORDERED: DIAZEPAM 5 MG TABLET PO ONE (16:09)
[2019-01-07] MEDS ORDERED: HEPARIN/NACL 0.9% 2 UNITS/ML 1,000 ML IV ONE (16:14)
[2019-01-07] MEDS ORDERED: LIDOCAINE 1% 20 ML VIAL ONE (16:14)
[2019-01-07] MEDS ORDERED: NITROGLYCERIN DRIP 50 MG/250 ML BOTTLE IV PRN (17:23)
[2019-01-07] MEDS ORDERED: SODIUM CHLORIDE 0.9% 1,000 ML IV SCH (17:30)
[2019-01-07] MEDS: cefTRIAXone 1,000 MG in SYRINGE 1 EACH IV SCH (19:26)
[2019-01-07] MEDS: RANOLAZINE 500 MG TABLET PO SCH (21:12)
[2019-01-07] MEDS: METOPROLOL TARTRATE 100 MG TABLET PO SCH (21:12)
[2019-01-07] MEDS: SIMVASTATIN 20 MG TABLET PO SCH (21:12)
[2019-01-08 03:59] LABS: Basophils % 0.4 % (0.0-0.8); Hematocrit 30.7 VOL% (35.7-47.0); Immature Granulocytes % 0.6 %; Immature Granulocytes Absolute 0.06 #; Lymphocytes # 1.3 10*3/uL (1.4-4.0); Lymphocytes % 13.6 % (21.3-54.2); Mean Corpuscular HGB Conc 32.6 GM/DL (32-36); Mean Corpuscular Volume 84.6 FL (87-102); Mean Platelet Volume 11.4 FL (9.6-12.0); Monocytes % 9.1 % (1.7-12.7); Neutrophils % 76.3 % (38.7-73.9); Platelet Count 178 T/CUMM (130-400); Red Blood Count 3.63 MC/CUMM (3.8-5.5); Red Cell Distribution Width 12.9 % (9.3-17.3); White Blood Count 9.6 T/CUMM (4-12)
[2019-01-08 04:13] LABS: Calcium 8.3 MG/DL (8.5-10.1); Osmolality,Calculated 266.1 MOS/KG (273-304)
[2019-01-08] MEDS: INSULIN LISPRO 100 UNIT/ML SUBCUT SCH ×4 (07:52→20:05)
[2019-01-08] MEDS: ASPIRIN EC 81 MG TABLET PO SCH (09:29)
[2019-01-08] MEDS: PANTOPRAZOLE 40 MG TABLET PO SCH (09:29)
[2019-01-08] MEDS: METOPROLOL TARTRATE 100 MG TABLET PO SCH ×2 (09:29→20:05)
[2019-01-08] MEDS: ISOSORBIDE MONONITRATE 60 MG TABLET PO SCH (09:30)
[2019-01-08] MEDS: FUROSEMIDE 40 MG/4 ML VIAL IV SCH (09:30)
[2019-01-08] MEDS: POTASSIUM CHLORIDE 20 MEQ TABLET PO PRN ×3 (09:30→15:26)
[2019-01-08] MEDS: RANOLAZINE 500 MG TABLET PO SCH ×2 (09:30→20:05)
[2019-01-08] MEDS ORDERED: POLYETHYLENE GLYCOL POWDER 17 GM PACK PO PRN (10:59)
[2019-01-08] MEDS ORDERED: CYANOCOBALAMIN 1000 MCG/1 ML VIAL IM SCH (11:00)
[2019-01-08] MEDS: carBAMazepine 200 MG TABLET PO SCH ×2 (13:37→23:15)
[2019-01-08] MEDS ORDERED: LACTULOSE 20 GM/30 ML UDCUP PO PRN (14:12)
[2019-01-08] MEDS ORDERED: traZODone 50 MG TABLET PO PRN (14:12)
[2019-01-08] MEDS ORDERED: DOCUSATE SODIUM 100 MG CAPSULE PO PRN (14:12)
[2019-01-08] MEDS ORDERED: ALUMINUM/MAGNES/SIMETH MAX STR 30 ML UDCUP PO PRN (14:13)
[2019-01-08] MEDS: cefTRIAXone 1,000 MG in SYRINGE 1 EACH IV SCH (15:25)
[2019-01-08] MEDS: AZITHROMYCIN INJ 500 MG in SODIUM CHLORIDE 0.9% 250 ML IV SCH (15:26)
[2019-01-08] MEDS: FERROUS SULFATE 325 MG TABLET PO SCH (20:05)
[2019-01-08] MEDS: SIMVASTATIN 20 MG TABLET PO SCH (20:05)
[2019-01-08] MEDS ORDERED: ALBUTEROL 2.5 MG/3 ML NEB RESP TX PRN (22:37)
[2019-01-08] MEDS ORDERED: FUROSEMIDE 40 MG/4 ML VIAL IV ONE (22:55)
[2019-01-09] MEDS: ALBUTEROL/IPRATROPIUM 3 ML NEB RESP TX SCH ×4 (01:14→18:38)
[2019-01-09 02:56] LABS: Basophils % 0.3 % (0.0-0.8); Hematocrit 30.1 VOL% (35.7-47.0); Hemoglobin 9.8 GM/DL (12.0-16.0); Immature Granulocytes % 0.8 %; Immature Granulocytes Absolute 0.07 #; Lymphocytes # 1.3 10*3/uL (1.4-4.0); Lymphocytes % 14.7 % (21.3-54.2); Mean Corpuscular HGB Conc 32.6 GM/DL (32-36); Mean Corpuscular Volume 83.6 FL (87-102); Mean Platelet Volume 10.9 FL (9.6-12.0); Monocytes % 9.7 % (1.7-12.7); Neutrophils % 74.5 % (38.7-73.9); Platelet Count 175 T/CUMM (130-400); White Blood Count 9.1 T/CUMM (4-12)
[2019-01-09 03:18] LABS: Calcium 7.9 MG/DL (8.5-10.1); Osmolality,Calculated 277.7 MOS/KG (273-304)
[2019-01-09 03:24] LABS: CKMB % 1.2 %
[2019-01-09 04:55] LABS: Apearance,Urine Slightly Hazy (Clear); Bacteria,Urine Moderate /HPF (Few); Bilirubin,Urine Negative (Negative); Blood, Urine Small mg/dL (Negative); Glucose,Urine (UA) 50 mg/dL (Negative); Ketones,Urine Negative (Negative); Mucus,Urine Occasional /LPF (Occasional); Nitrite,Urine Negative (Negative); Protein,Urine Negative; RBC,Urine 3 /HPF (0-4); Squamous Epithelial Cell,Urine Occasional /HPF (0-10); Urine Color Yellow (Yellow); Urine Specific Gravity 1.011 (1.001-1.035); Urine Urobilinogen < 2.0 EU/DL (0.2-1.0); WBC,Urine 1 /HPF (0-6)
[2019-01-09] MEDS: LEVOTHYROXINE 75 MCG TABLET PO SCH (06:18)
[2019-01-09] MEDS: INSULIN LISPRO 100 UNIT/ML SUBCUT SCH ×4 (07:38→21:00)
[2019-01-09] MEDS ORDERED: FUROSEMIDE 40 MG/4 ML VIAL IV ONE (07:40)
[2019-01-09] MEDS: ASPIRIN EC 81 MG TABLET PO SCH (09:13)
[2019-01-09] MEDS: MAGNESIUM CHLORIDE 64 MG TABLET PO SCH (09:13)
[2019-01-09] MEDS: FERROUS SULFATE 325 MG TABLET PO SCH ×2 (09:13→21:01)
[2019-01-09] MEDS: RANOLAZINE 500 MG TABLET PO SCH ×2 (09:13→21:01)
[2019-01-09] MEDS: MONTELUKAST 10 MG TABLET PO SCH (09:13)
[2019-01-09] MEDS: PANTOPRAZOLE 40 MG TABLET PO SCH (09:13)
[2019-01-09] MEDS: FUROSEMIDE 40 MG/4 ML VIAL IV SCH (09:14)
[2019-01-09] MEDS: METOPROLOL TARTRATE 100 MG TABLET PO SCH ×2 (12:03→21:01)
[2019-01-09] MEDS: ISOSORBIDE MONONITRATE 60 MG TABLET PO SCH (12:03)
[2019-01-09] MEDS: carBAMazepine 200 MG TABLET PO SCH ×2 (12:05→22:52)
[2019-01-09] MEDS: AZITHROMYCIN INJ 500 MG in SODIUM CHLORIDE 0.9% 250 ML IV SCH (16:02)
[2019-01-09] MEDS: cefTRIAXone 1,000 MG in SYRINGE 1 EACH IV SCH (18:00)
[2019-01-09] MEDS: SIMVASTATIN 20 MG TABLET PO SCH (21:00)
[2019-01-10] MEDS: ALBUTEROL/IPRATROPIUM 3 ML NEB RESP TX SCH ×4 (02:00→20:19)
[2019-01-10 03:13] LABS: Basophils % 0.2 % (0.0-0.8); Eosinophils % 0.1 % (0.00-10.9); Hematocrit 28.5 VOL% (35.7-47.0); Hemoglobin 9.5 GM/DL (12.0-16.0); Immature Granulocytes % 1.1 %; Lymphocytes # 1.1 10*3/uL (1.4-4.0); Lymphocytes % 11.3 % (21.3-54.2); Mean Corpuscular HGB Conc 33.3 GM/DL (32-36); Mean Corpuscular Volume 83.3 FL (87-102); Mean Platelet Volume 10.2 FL (9.6-12.0); Monocytes % 10.9 % (1.7-12.7); Neutrophils % 76.4 % (38.7-73.9); Platelet Count 195 T/CUMM (130-400); Red Blood Count 3.42 MC/CUMM (3.8-5.5); Red Cell Distribution Width 13.2 % (9.3-17.3); White Blood Count 9.5 T/CUMM (4-12)
[2019-01-10 03:17] LABS: Allen Test Positive
[2019-01-10 03:18] LABS: ABG Base Excess 0.5 MMOL/L (-2.5-2.5); ABG HCO3 24.7 MMOL/L (20-26); ABG Oxygen Saturation 85.8 % (95-100); ABG PCO2 31.6 MM HG (35-48); ABG PH 7.479 (7.35-7.45); ABG PO2 51.9 MM HG (80-95); ABG TCO2 21.4 MMOL/L (23-27)
[2019-01-10 03:39] LABS: Calcium 8.2 MG/DL (8.5-10.1); Osmolality,Calculated 276.1 MOS/KG (273-304)
[2019-01-10 03:50] LABS: Ferritin 1754.4 ng/ml (8-252)
[2019-01-10] MEDS: POTASSIUM CHLORIDE 20 MEQ TABLET PO PRN (04:13)
[2019-01-10] MEDS ORDERED: FUROSEMIDE 40 MG/4 ML VIAL ONE (05:35)
[2019-01-10] MEDS ORDERED: FUROSEMIDE 40 MG/4 ML VIAL IV ONE (05:39)
[2019-01-10] MEDS ORDERED: PROPOFOL 1,000 MG/100 ML BOTTLE IV ONE (07:18)
[2019-01-10] MEDS ORDERED: SUCCINYLCHOLINE 200 MG/10 ML VIAL ONE (07:18)
[2019-01-10] MEDS ORDERED: PROPOFOL 200 MG/20 ML VIAL IV ONE (07:21)
[2019-01-10] MEDS ORDERED: SUCCINYLCHOLINE 200 MG/10 ML VIAL IV ONE (07:24)
[2019-01-10] MEDS ORDERED: SODIUM CHLORIDE 0.9% 1,000 ML IV ONE (07:25)
[2019-01-10] MEDS ORDERED: NOREPINEPHRINE 4 MG/4 ML VIAL IV ONE ×2 (07:26→07:28)
[2019-01-10] MEDS ORDERED: NOREPINEPHRINE 8 MG in SODIUM CHLORIDE 0.9% 242 ML IV PRN (07:29)
[2019-01-10] MEDS: PROPOFOL 1,000 MG/100 ML BOTTLE IV SCH ×3 (07:40→16:37)
[2019-01-10] MEDS ORDERED: POTASSIUM CHLORIDE 20 MEQ/15 ML UDCUP PO PRN (08:00)
[2019-01-10] MEDS ORDERED: ENOXAPARIN 40 MG/0.4 ML SYRINGE SUBCUT SCH (08:00)
[2019-01-10] MEDS: INSULIN LISPRO 100 UNIT/ML SUBCUT SCH ×5 (08:01→21:37)
[2019-01-10 08:07] LABS: ABG Base Excess -4.4 MMOL/L (-2.5-2.5); ABG HCO3 17.7 MMOL/L (20-26); ABG Oxygen Saturation 96.8 % (95-100); ABG PH 7.485 (7.35-7.45); ABG PO2 99.8 MM HG (80-95); ABG TCO2 18.4 MMOL/L (23-27)
[2019-01-10] MEDS: MAGNESIUM CHLORIDE 64 MG TABLET PO SCH (09:38)
[2019-01-10] MEDS: FERROUS SULFATE 325 MG TABLET PO SCH ×2 (09:38→21:36)
[2019-01-10] MEDS: ASPIRIN CHEW 81 MG TABLET PO SCH (09:38)
[2019-01-10] MEDS: RANOLAZINE 500 MG TABLET PO SCH ×2 (09:38→21:36)
[2019-01-10] MEDS: LEVOTHYROXINE 75 MCG TABLET PO SCH (09:38)
[2019-01-10] MEDS: LANSOPRAZOLE ODT 30 MG TABLET PER TUBE SCH (09:38)
[2019-01-10] MEDS: ENOXAPARIN 80 MG/0.8 ML SYRINGE SUBCUT SCH ×2 (09:38→21:36)
[2019-01-10] MEDS: METOPROLOL TARTRATE 50 MG TABLET PO SCH ×2 (09:38→21:36)
[2019-01-10] MEDS: MONTELUKAST 10 MG TABLET PO SCH (09:38)
[2019-01-10] MEDS: SODIUM CHLORIDE 0.9% 1,000 ML IV SCH (09:50)
[2019-01-10] MEDS ORDERED: SODIUM CHLORIDE 0.9% 1,650 ML IV ONE (10:22)
[2019-01-10] MEDS ORDERED: SODIUM CHLORIDE 0.9% 600 ML IV ONE (11:10)
[2019-01-10] MEDS: CLINDAMYCIN INJ 600 MG in PREMIX 1 EACH IV SCH ×2 (11:28→18:07)
[2019-01-10] MEDS: carBAMazepine 200 MG TABLET PO SCH ×2 (11:28→22:51)
[2019-01-10] MEDS: methylPREDNISolone SOD SUC 125 MG/2 ML VIAL IV SCH ×2 (11:28→18:09)
[2019-01-10 11:42] LABS: Free T4 (Free Thyroxine) 1.38 NG/DL (0.76-1.46); Thyroid Stimulating Hormone 0.764 uIU/ml (0.358-3.74)
[2019-01-10] MEDS ORDERED: MAGNESIUM SULF RIDER 4 GM in PREMIX 1 EACH IV PRN (12:04)
[2019-01-10] MEDS ORDERED: MAGNESIUM SULF RIDER 2 GM in PREMIX 1 EACH IV PRN (12:04)
[2019-01-10] MEDS: cefTRIAXone 1,000 MG in SYRINGE 1 EACH IV SCH (15:27)
[2019-01-10] MEDS ORDERED: FUROSEMIDE 40 MG/5 ML UDCUP PO SCH (16:00)
[2019-01-10] MEDS ORDERED: FUROSEMIDE 40 MG/4 ML VIAL IV SCH (16:00)
[2019-01-10] MEDS ORDERED: SODIUM CHLORIDE 0.9% 500 ML IV ONE (16:27)
[2019-01-10] MEDS: SIMVASTATIN 20 MG TABLET PO SCH (21:36)
[2019-01-11] MEDS: ALBUTEROL/IPRATROPIUM 3 ML NEB RESP TX SCH ×3 (01:19→13:30)
[2019-01-11 01:30] LABS: Basophils % 0.2 % (0.0-0.8); Hematocrit 31.6 VOL% (35.7-47.0); Hemoglobin 10.2 GM/DL (12.0-16.0); Immature Granulocytes Absolute 0.14 #; Lymphocytes # 0.8 10*3/uL (1.4-4.0); Lymphocytes % 5.9 % (21.3-54.2); Mean Corpuscular HGB Conc 32.3 GM/DL (32-36); Mean Corpuscular Volume 84.7 FL (87-102); Mean Platelet Volume 10.8 FL (9.6-12.0); Monocytes % 4.2 % (1.7-12.7); NRBC # 0.02 10*3/uL; Neutrophils % 88.7 % (38.7-73.9); Platelet Count 261 T/CUMM (130-400); Red Blood Count 3.73 MC/CUMM (3.8-5.5); Red Cell Distribution Width 13.1 % (9.3-17.3)
[2019-01-11 01:50] LABS: Calcium 7.7 MG/DL (8.5-10.1)
[2019-01-11 01:51] LABS: Band Neutrophils 8 % (0-10); Lymphocytes 8 % (20-55); Metamyelocytes 1 %; Segmented Neutrophils 80 % (50-85); Total Cells Counted 100
[2019-01-11 01:53] LABS: Ovalocytes 1+; Platelet Estimate Normal; Polychromasia Few
[2019-01-11 01:54] LABS: Albumin 2.1 G/DL (3.4-5.0); Bilirubin,Direct 0.3 MG/DL (0.0-0.20); Bilirubin,Indirect 0.5 MG/DL (0.0-1.0); Bilirubin,Total 0.8 MG/DL (0.2-1.0); Total Protein 7.1 G/DL (6.4-8.3)
[2019-01-11 03:01] LABS: ABG HCO3 22.6 MMOL/L (20-26); ABG Oxygen Saturation 90.8 % (95-100); ABG PH 7.464 (7.35-7.45); ABG PO2 61.3 MM HG (80-95); ABG TCO2 18.6 MMOL/L (23-27); Pt O2 Delivery Device Ventilator
[2019-01-11] MEDS: methylPREDNISolone SOD SUC 125 MG/2 ML VIAL IV SCH ×2 (03:18→13:27)
[2019-01-11] MEDS: CLINDAMYCIN INJ 600 MG in PREMIX 1 EACH IV SCH ×2 (03:24→11:00)
[2019-01-11] MEDS: PROPOFOL 1,000 MG/100 ML BOTTLE IV SCH ×2 (03:25→11:03)
[2019-01-11] MEDS: LEVOTHYROXINE 75 MCG TABLET PO SCH (06:16)
[2019-01-11] MEDS ORDERED: SODIUM CHLORIDE 0.9% 250 ML IV ONE (07:24)
[2019-01-11] MEDS ORDERED: SODIUM CHLORIDE 0.9% 1,000 ML IV SCH (07:30)
[2019-01-11 07:47] VITALS: BP 95/60
[2019-01-11] MEDS: MAGNESIUM CHLORIDE 64 MG TABLET PO SCH (09:31)
[2019-01-11] MEDS: METOPROLOL TARTRATE 50 MG TABLET PO SCH (09:31)
[2019-01-11] MEDS: LANSOPRAZOLE ODT 30 MG TABLET PER TUBE SCH (09:31)
[2019-01-11] MEDS: ASPIRIN CHEW 81 MG TABLET PO SCH (09:31)
[2019-01-11] MEDS: MONTELUKAST 10 MG TABLET PO SCH (09:31)
[2019-01-11] MEDS: FERROUS SULFATE 325 MG TABLET PO SCH (09:31)
[2019-01-11] MEDS: ENOXAPARIN 80 MG/0.8 ML SYRINGE SUBCUT SCH (09:57)
[2019-01-11] MEDS: INSULIN LISPRO 100 UNIT/ML SUBCUT SCH ×2 (09:57→13:28)
[2019-01-11] MEDS ORDERED: CYANOCOBALAMIN 1000 MCG/1 ML VIAL IM ONE (10:32)
[2019-01-11] MEDS ORDERED: NOREPINEPHRINE 8 MG in SODIUM CHLORIDE 0.9% 242 ML IV PRN (11:11)
[2019-01-11] MEDS ORDERED: CALCIUM CHLORIDE 1,000 MG/10 ML SYRINGE IV ONE (11:12)
[2019-01-11] MEDS ORDERED: EPINEPHrine 1 MG/10 ML SYRINGE ONE (11:12)
[2019-01-11] MEDS ORDERED: SODIUM BICARBONATE 50 MEQ/50 ML SYRINGE IV ONE (11:12)
[2019-01-11 11:26] LABS: ABG Base Excess -13.8 MMOL/L (-2.5-2.5); ABG HCO3 12.7 MMOL/L (20-26); ABG Oxygen Saturation 11.6 % (95-100); ABG PCO2 44.8 MM HG (35-48); ABG TCO2 14.6 MMOL/L (23-27)
[2019-01-11 11:29] LABS: ABG PO2 18.7 MM HG (80-95)
[2019-01-11] MEDS: carBAMazepine 200 MG TABLET PO SCH (13:27)
== END 2019-01-11 11:30 | disposition expired ==
LOC: EDBD → EDUNIT# → N.ED 21:20 → N.EDINP 21:20 → SUATTDRO 01-07 02:14 → N.5E 01-07 03:00 → N.TELES 01-07 14:59 → N.CC 01-07 17:06
PROVIDERS: ADMIT Internal Medicine Cardiovascular Disease; ATTEND Internal Medicine Cardiovascular Disease